=== PATIENT | female | born 1970 | race Caucasian/White ===

== ENCOUNTER 2016-12-12 14:42 | Outpatient (CLI) | payer OTHER ==
--- NOTE | 2016-12-12 18:00 | Mammography Report ---
DIGITAL BILATERAL SCREENING MAMMOGRAM: 12/12/2016 HISTORY: A 46-year-old female, family history of breast cancer. Late to childbearing. Implants placed 2004. NOTE: The patient presents with nonfocal bilateral intermittent breast pain. COMPARISON: 08/2010, 07/2009, 06/2008. TECHNIQUE: Routine CC and MLO projections were obtained of the breasts as well as bilateral displaced views. FINDINGS: Parenchymal tissue within both breasts is heterogeneously dense, which may lower the sensitivity of mammography; however, there are no dominant masses, suspicious microcalcifications, or secondary signs of malignancy. In comparison to the previous studies, there are no significant changes. The pattern of glandular asymmetry is stable. ASSESSMENT: NO MAMMOGRAPHIC EVIDENCE OF MALIGNANCY. NO SIGNIFICANT INTERVAL CHANGES. NOTE: There is no mammographic explanation for bilateral nonfocal intermittent breast pain. RECOMMENDATION: Screening mammography is recommended annually. Recommend clinical followup for nonfocal pain. Negative imaging should not dissuade further evaluation of any significant clinical changes. BI-RADS category 1 - negative. STANDARD QUALIFYING STATEMENTS 1. This examination was reviewed with the aid of Computed-Aided Detection (CAD). 2. A negative or benign imaging report should not delay biopsy if clinically suspicious findings are present. Consider surgical consultation if warranted. More than 5% of cancers are not identified by imaging. 3. Dense breasts may obscure an underlying neoplasm. JOB #: [id number] EXT JOB #: [id number] RADHA
== END 2016-12-12 14:43 | disposition home or self-care (01) ==
LOC: DI 14:42
PROVIDERS: ATTEND Internal Medicine
DX: Z12.31 Encounter for screening mammogram for malignant neoplasm of breast (principal); Z98.82 Breast implant status
CPT/HCPCS: 77067

== ENCOUNTER 2017-01-09 11:45 | Day surgery (SDC) | payer OTHER ==
[2017-01-09] MEDS ORDERED: LACTATED RINGERS 1,000 ML IV ONE ×2 (11:49→13:15)
[2017-01-09 12:03] LABS: HCG UR QUAL NEGATIVE
[2017-01-09] MEDS ORDERED: fentaNYL 100 MCG/2 ML VIAL IVP ONE (12:20)
[2017-01-09] MEDS ORDERED: MIDAZOLAM 2 MG/2 ML VIAL IVP ONE (12:20)
[2017-01-09] MEDS ORDERED: LIDOCAINE-MPF 2% 5 ML VIAL IM ONE (12:59)
[2017-01-09] MEDS ORDERED: PROPOFOL 200 MG/20 ML VIAL IVP ONE (12:59)
[2017-01-09 14:02] VITALS: BP 110/67
== END 2017-01-09 11:46 | disposition home or self-care (01) ==
LOC: SDS 11:45
PROVIDERS: ATTEND Surgery
PROC: 0DBK8ZX Excision of Ascending Colon, Via Natural or Artificial Opening Endoscopic, Diagnostic (ICD-10-PCS; principal; 2017-01-09 12:15)
DX: Z12.11 Encounter for screening for malignant neoplasm of colon (principal); D12.2 Benign neoplasm of ascending colon; K64.8 Other hemorrhoids; K57.30 Diverticulosis of large intestine without perforation or abscess without bleeding; Z83.71 Family history of colonic polyps
CPT/HCPCS: 45384; 81025; J7120

== ENCOUNTER 2017-03-09 08:00 | Outpatient (CLI) | payer OTHER ==
[2017-03-09 14:48] LABS: RAPID STREP SCREEN REAGENT QC YELLOW (YELLOW)
== END 2017-03-09 08:01 | disposition home or self-care (01) ==
LOC: LAB.R 08:00
PROVIDERS: ATTEND Internal Medicine
DX: J02.9 Acute pharyngitis, unspecified (principal)
CPT/HCPCS: 87070; 87430

== ENCOUNTER 2020-09-30 11:33 | Emergency (ER) | payer OTHER ==
--- NOTE | 2020-09-30 12:04 | ED Physician Documentation ---
History of Present Illness - Stated complaint Stated Complaint: FEMALE - Chief complaint Chief Complaint: General - Additonal information Additional information: 50-year-old female presents the emergency department for evaluation of rectal bleeding. She reports that for about 2 to 3 months this has been an intermittent problem. She often reports that after defecating she notices bloody stool. Sometimes it is the stool that is jelly and blood like but sometimes it is streaked with blood only. She typically gets colonoscopies every 1 to 2 years because she has a history of polyps. Denies any history of colon cancer and has not had any weight loss recently no abdominal pain, fevers or vomiting. She does report intermittent constipation as well as loose stools and what may sound like irritable bowel syndrome. She called [facility] nurse line and was advised to come to the ER for evaluation. Patient denies chest pain or shortness of air. No syncope, feelings of lightheadedness or dizziness. She is not an alcohol user no tobacco and does not use NSAIDs. No anticoagulation. Review of Systems Constitutional: denies: Fever Eyes: reports: Reviewed and negative Ears: reports: Reviewed and negative Nose: reports: Reviewed and negative Throat: reports: Dental pain / toothache Cardiac: reports: Reviewed and negative Respiratory: reports: Reviewed and negative GI: reports: Bloody / black stool. denies: Abdominal Pain, Abdominal Swelling, Nausea, Vomiting : denies: Dysuria, Frequency, Hesitancy Musculoskeletal: denies: Neck pain, Back pain Neurologic: denies: Generalized weakness, Focal weakness PD PAST MEDICAL HISTORY - Present Medications Home Medications: Ambulatory Orders Medication Instructions Recorded Confirmed No Known Home Medications 01/09/17 09/30/20 - Allergies Allergies/Adverse Reactions: Allergies Allergy/AdvReac Type Severity Reaction Status Date / Time codeine Allergy Itching Verified 09/30/20 11:46 latex Allergy Rash Verified 09/30/20 11:46 PD ED PE NORMAL - General General: Alert and oriented X 3, No acute distress - HEENT HEENT: PERRL, Ears normal - Neck Neck: Supple, no meningeal sign, No adenopathy - Cardiac Cardiac: RRR, No murmur - Respiratory Respiratory: No respiratory distress, Clear bilaterally - Abdomen Abdomen: Normal bowel sounds, Soft, Non tender, Non distended PD ED PE EXPANDED - Rectal Rectal: Normal Tone (no hemorrhoid or fissue. no stool in vault. non tender exam) Results - Vitals Vitals: Vital Signs - 24 hr 09/30/20 11:40 Temperature 36.9 C Heart Rate 60 Respiratory 16 Rate Blood Pressure 120/72 O2 Saturation 98 Oxygen O2 Source Room air - Labs Labs: Laboratory Tests 09/30/20 09/30/20 09/30/20 12:02 12:02 12:20 WBC 4.6 L RBC 4.62 Hgb 12.5 Hct 40.1 MCV 86.8 MCH 27.1 MCHC 31.2 L RDW 14.4 Plt Count 247 MPV 10.6 Neut # (Auto) 2.2 Lymph # (Auto) 1.9 [place] # (Auto) 0.4 Eos # (Auto) 0.1 Baso # (Auto) 0.0 Absolute Nucleated RBC 0.00 Nucleated RBC % 0.0 Sodium 135 Potassium 3.7 Chloride 103 Carbon Dioxide 26 Anion Gap 6.0 BUN 10 Creatinine 0.7 Estimated GFR (MDRD) 88 L Glucose 106 H Calcium 9.0 Total Bilirubin 0.5 AST 24 ALT 19 Alkaline Phosphatase 79 Total Protein 7.6 Albumin 4.6 Globulin 3.0 Albumin/Globulin Ratio 1.5 Lipase 47 Urine Color YELLOW Urine Clarity CLEAR Urine pH 5.5 Ur Specific Stanley >=1.030 H Urine Protein NEGATIVE Urine Glucose (UA) NEGATIVE Urine Ketones NEGATIVE Urine Occult Blood NEGATIVE Urine Nitrite NEGATIVE Urine Bilirubin NEGATIVE Urine Urobilinogen 0.2 (NORMAL) Ur Leukocyte Esterase NEGATIVE Ur Microscopic Review NOT INDICATED Urine Culture Comments NOT INDICATED - Rads (name of study) CT abd Radiology: Final report received (Sigmoid diverticulosis without evidence of diverticulitis. Questionable rectal hemorrhoids. No evidence of acute abdominal process.) PD MEDICAL DECISION MAKING - ED course Complexity details: reviewed results, re-evaluated patient, d/w patient ED course: 50-year-old female presents the emergency department for evaluation of intermittent rectal bleeding that she has been noticing for the last 2 to 3 m onths. Occasionally she will have blood-streaked stools but she also reports that she has sometimes frankly bloody stools. She does report a history of multiple colon polyps in the past that have been removed during colonoscopy. Screening labs today show no significant leukocytosis or anemia. Electrolytes unremarkable. A rectal exam at the bedside was unrevealing. No obvious hemorrhoids fissures blood or stool in the rectal vault. A CT scan was completed and it does show diverticulosis without findings of inflammation. The CT does make comment of possible rectal hemorrhoids. The labs and findings were discussed with the patient. I do recommend close follow-up with her primary care provider. I am recommending that she increase her fiber supplementation with Metamucil to avoid straining at defecation. It is straining that often results in bloody bowel movements. She can also try as needed MiraLAX for constipation. If these symptoms do not improve the rectal bleeding then she may benefit from repeat colonoscopy or referral to proctology. Emergent return precautions were discussed. Departure - Departure Disposition: Home, Self Care Clinical Impression: Rectal bleeding Condition: Stable Instructions: Hemorrhoids Self Care Comments: Bozena [place] were seen in the emergency department today for concerns of intermittent rectal bleeding for the last few months. Your screening labs and electrolytes were essentially normal. We did do a rectal exam at the bedside that did not reveal any obvious causes for the bleeding such as hemorrhoids or fissures. A CT scan was completed it does show that you have diverticulosis without signs of inflammation in the colon. The CT does make comment that you may have rectal hemorrhoids. At this point I would recommend that you schedule close follow-up with your primary care provider in a few weeks time. I would like you to increase your fiber supplementation at home through the use of an [id number] product such as Benefiber or Metamucil. Increased fiber in the diet can help prevent straining during bowel movements. If you continue to strain I do recommend that you take MiraLAX as directed [id number]. If these measures do not improve the rectal bleeding your primary care provider may want to make a referral for a repeat colonoscopy. Return to the emergency department if you develop chest pain, shortness of air, develop rectal plane, severe rectal bleeding or have any fainting episodes.
[2020-09-30 12:14] LABS: BASOPHILS % (AUTO) 0.4 %; EOSINOPHILS # (AUTO) 0.1 10^3/uL (0.0-0.7); EOSINOPHILS % (AUTO) 1.8 %; HCT - HEMATOCRIT 40.1 % (37.0-47.0); HGB - HEMOGLOBIN 12.5 g/dL (12.0-16.0); LYMPHOCYTES # (AUTO) 1.9 10^3/uL (1.5-3.5); LYMPHOCYTES % (AUTO) 40.7 %; MEAN CORPUSCULAR HEMOGLOBIN 27.1 pg (27.0-31.0); MEAN CORPUSCULAR HGB CONC 31.2 g/dL (32.0-36.0); MEAN CORPUSCULAR VOLUME 86.8 fL (81.0-99.0); MEAN PLATELET VOLUME 10.6 fL (7.9-10.8); MONOCYTES # (AUTO) 0.4 10^3/uL (0.0-1.0); MONOCYTES % (AUTO) 7.9 %; NEUTROPHILS # (AUTO) 2.2 10^3/uL (1.5-6.6); PLT - PLATELET COUNT 247 10^3/uL (130-450); RED BLOOD COUNT 4.62 10^6/uL (4.20-5.40); RED CELL DISTRIBUTION WIDTH 14.4 % (12.0-15.0); WHITE BLOOD COUNT 4.6 x10^3/uL (4.8-10.8)
[2020-09-30 12:23] LABS: ALBUMIN 4.6 g/dL (3.2-5.5); ALBUMIN/GLOBULIN RATIO 1.5 (1.0-2.2); BILIRUBIN,TOTAL 0.5 mg/dL (0.2-1.0); CREATININE 0.7 mg/dL (0.4-1.0); POTASSIUM 3.7 mmol/L (3.5-5.0); TOTAL PROTEIN 7.6 g/dL (6.7-8.2)
[2020-09-30 12:26] LABS: BILIRUBIN,URINE NEGATIVE (NEGATIVE); GLUCOSE, URINE (UA) NEGATIVE (NEGATIVE); KETONES,URINE (UA) NEGATIVE (NEGATIVE); LEUKOCYTE ESTERASE, URINE NEGATIVE (NEGATIVE); NITRITE,URINE NEGATIVE (NEGATIVE); OCCULT BLOOD,URINE NEGATIVE (NEGATIVE); PH,URINE 5.5 PH (5.0-7.5); PROTEIN,URINE NEGATIVE (NEGATIVE); UROBILINOGEN,URINE 0.2 (NORMAL) E.U./dL (NORMAL)
[2020-09-30 12:27] LABS: CLARITY,URINE CLEAR (CLEAR)
[2020-09-30] MEDS ORDERED: IOVERSOL 320 100 ML VIAL IVP ONE ×2 (12:51→13:12)
--- NOTE | 2020-09-30 13:49 | CT Report ---
PROCEDURE: Abdomen/Pelvis W INDICATIONS: rectal bleeding CONTRAST: IV CONTRAST: Optiray 320 ml: 100 PO CONTRAST: *NO PO CONTRAST TECHNIQUE: After the administration of intravenous contrast, 5 mm thick sections acquired from the diaphragms to the symphysis. 5 mm thick coronal and sagittal reformats were acquired. For radiation dose reducti on, the following was used: automated exposure control, adjustment of mA and/or kV according to dov ent size. COMPARISON: None. FINDINGS: Image quality: Excellent. ABDOMEN: Lung bases: Lung bases are clear. Heart size is normal. Bilateral mammoplasties. Solid organs: Liver and spleen are normal in size and enhancement. Gallbladder is unremarkable. Bi liary system is non dilated. Pancreas enhances normally. No adrenal nodules. Kidneys demonstrate n ormal size and enhancement, without hydronephrosis. Peritoneum and bowel: Bowel loops demonstrate normal wall thickness and caliber. Tiny enhancing stru ctures in the distal rectum may represent hemorrhoids. No free fluid or air. Sigmoid diverticulosis without evidence of diverticulitis. Nodes and vessels: No retroperitoneal or mesenteric adenopathy by size criteria. Aorta and inferior vena cava are normal in size. Miscellaneous: No ventral hernias. PELVIS: Genitourinary: Bladder wall thickness is normal. Miscellaneous: No inguinal hernias or adenopathy. Bones: No suspicious bony lesions. No vertebral body compression fractures. 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 IMPRESSION: 1. Sigmoid diverticulosis without evidence of diverticulitis. 2. Question rectal hemorrhoids. 3. No evidence of acute abdominal process. Reviewed by: Jose Ferguson MD on 09/30/2020 1:48 PM PDT Approved by: Jose Ferguson MD on 09/30/2020 1:48 PM PDT Station ID: [id number]
[2020-09-30 14:13] VITALS: BP 129/79
== END 2020-09-30 14:13 | disposition home or self-care (01) ==
LOC: ED 11:33
DX: K62.5 Hemorrhage of anus and rectum (principal); K57.30 Diverticulosis of large intestine without perforation or abscess without bleeding; Z86.010 Personal history of colon polyps
CPT/HCPCS: 36415; 74177; 80053; 81003; 83690; 85025; 99284; Q9967; 81001; 87086

== ENCOUNTER 2023-10-20 08:00 | Outpatient (CLI) | payer OTHER ==
[2023-10-20 15:30] LABS: B. PARAPERTUSSIS- RESP PCR PAN NOT DETECTED; B. PERTUSSIS- RESP PCR PANEL NOT DETECTED; CORONAVIRUS 229E-RESP PCR NOT DETECTED; CORONAVIRUS HKU1-RESP PCR NOT DETECTED; CORONAVIRUS NL63-RESP PCR NOT DETECTED; CORONAVIRUS OC43-RESP PCR NOT DETECTED; HUMAN METAPNEUMOVIRUS NOT DETECTED; INFLUENZA A- RESP PCR PANEL NOT DETECTED; INFLUENZA B - RESP PCR PANEL NOT DETECTED; PARAINFLUENZA VIRUS 1 NOT DETECTED; PARAINFLUENZA VIRUS 2 NOT DETECTED; PARAINFLUENZA VIRUS 3 NOT DETECTED; PARAINFLUENZA VIRUS 4 NOT DETECTED; RHINOVIRUS/ENTEROVIRUS NOT DETECTED; RSV- RESP PCR PANEL NOT DETECTED
[2023-10-20 15:31] LABS: C. PNEUMONIAE- RESP PCR PANEL NOT DETECTED; M. PNEUMONIAE- RESP PCR PANEL NOT DETECTED
[2023-10-20 15:35] LABS: SARS-CoV-2 -RESP PCR PANEL DETECTED
== END 2023-10-20 23:59 | disposition home or self-care (01) ==
LOC: LAB.WCP 08:00
PROVIDERS: ATTEND Physician Assistant
DX: U07.1 COVID-19 (principal)
CPT/HCPCS: 87633

== ENCOUNTER 2024-01-04 08:00 | Outpatient (CLI) | payer OTHER ==
[2024-01-04 14:17] LABS: INFLUENZA A- RESP PCR PANEL NOT DETECTED; INFLUENZA B - RESP PCR PANEL NOT DETECTED; RSV- RESP PCR PANEL NOT DETECTED; SARS-CoV-2 -RESP PCR PANEL NOT DETECTED
== END 2024-01-04 23:59 | disposition home or self-care (01) ==
LOC: LAB.WCP 08:00
PROVIDERS: ATTEND Physician Assistant
DX: J06.9 Acute upper respiratory infection, unspecified (principal)
CPT/HCPCS: 87637